=== PATIENT | female | born 1960 | race Caucasian/White ===

== ENCOUNTER → 2017-10-03 | Outpatient (CLI) | payer OTHER | END | disposition home or self-care (01) | LOC: SHCH 15:32 | PROVIDERS: ATTEND Internal Medicine Cardiovascular Disease | DX: I87.2 Venous insufficiency (chronic) (peripheral) (principal) | CPT/HCPCS: 93970 ==

== ENCOUNTER → 2017-11-11 | Outpatient (CLI) | payer OTHER | END | disposition home or self-care (01) | LOC: SHCH 10:02 | PROVIDERS: ATTEND Internal Medicine Cardiovascular Disease | DX: I87.2 Venous insufficiency (chronic) (peripheral) (principal) | CPT/HCPCS: 93970 ==

== ENCOUNTER → 2018-01-16 | Outpatient (CLI) | payer OTHER | END | disposition home or self-care (01) | LOC: SHCH 15:40 | PROVIDERS: ATTEND Internal Medicine Cardiovascular Disease | DX: Z09 Encounter for follow-up examination after completed treatment for conditions other than malignant neoplasm (principal) | CPT/HCPCS: 93971 ==

== ENCOUNTER → 2021-01-19 | Outpatient (CLI) | payer OTHER | END | disposition home or self-care (01) | LOC: OIH 10:27 | PROVIDERS: ATTEND Family Medicine | DX: Z01.818 Encounter for other preprocedural examination (principal) | CPT/HCPCS: 71046 ==

== ENCOUNTER 2021-02-16 08:51 | Observation (INO) | payer OTHER ==
[2021-02-12 10:35] LABS: APPEARANCE,URINE Cloudy (CLEAR); BILIRUBIN,URINE Negative (NEGATIVE); COLOR,URINE Yellow (YELLOW); GLUCOSE, URINE (UA) Negative (NEGATIVE); KETONES,URINE Negative (NEGATIVE); LEUKOCYTE ESTERASE ,URINE Moderate (NEGATIVE); NITRATE,URINE Positive (NEGATIVE); OCCULT BLOOD,URINE Trace (NEGATIVE); PH,URINE 5.5 (5.0-8.0); PROTEIN,URINE Negative (NEGATIVE)
[2021-02-12 10:56] LABS: BACTERIA,URINE Many /HPF (None Seen); SQUAMOUS EPITHELIAL CELL,UR Many /HPF (0-2)
[2021-02-13 11:33] VITALS: BP 130/78
[2021-02-16] VITALS (18 sets, daily range): BP systolic 88–143; BP diastolic 47–85
[~2021-02-16] VITALS: Ht 162.6 cm; Wt 112.3 kg
[~2021-02-16 08:51] MED LIST: ACET1TAB25 PO; ATOR10 PO; DIPH25CA53 PO; LOSA100T58 PO; METO-409 PO; MIRA25TA PO; OMEP40CA21 PO; THEO400T3 PO; VITAMIN D2 PO
[2021-02-16] MEDS ORDERED: LACTATED RINGERS 1000ML 1,000 ML IV ONE (09:34)
[2021-02-16] MEDS: GENTAMICIN SULFATE 240 MG in 0.9%NACL 100ML 100 ML IV SCH ×4 (10:15→16:19)
[2021-02-16] MEDS: CEFAZOLIN SODIUM 1 GM VIAL IVP SCH ×3 (10:23→20:26)
[2021-02-16] MEDS ORDERED: SUCCINYLCHOLINE CHLORIDE 20 MG/ML 10 ML VIAL ONE (10:38)
[2021-02-16] MEDS ORDERED: LIDOCAINE PF 100MG/5ML (2%) SYRINGE 5ML ONE (10:38)
[2021-02-16] MEDS ORDERED: MIDAZOLAM HCL 1 MG/ML 2ML VIAL ONE (10:39)
[2021-02-16] MEDS ORDERED: GLYCOPYRROLATE 1 MG/5 ML SYRINGE ONE (10:39)
[2021-02-16] MEDS ORDERED: DEXAMETHASONE SOD PHOSPHATE 10MG/ML 1ML VIAL ONE (10:39)
[2021-02-16] MEDS ORDERED: FENTANYL CITRATE PF 50 MCG/1 ML 2ML VIAL ONE ×2 (10:39→12:14)
[2021-02-16] MEDS ORDERED: ONDANSETRON 4MG INJ ONE (10:39)
[2021-02-16] MEDS ORDERED: ROCURONIUM 10MG/1ML SYR 10 MG/ML ML ONE ×2 (10:39→12:15)
[2021-02-16] MEDS ORDERED: NEOSTIGMINE 5MG/5ML SYR IV ONE (10:39)
[2021-02-16] MEDS ORDERED: PROPOFOL 10 MG/ML 20ML VIAL IV ONE (10:39)
[2021-02-16] MEDS ORDERED: MEPERIDINE-PF 25 MG/ML SYG ONE ×3 (10:40→14:26)
[2021-02-16] MEDS ORDERED: ROPIVACAINE 0.5% 5MG/ML 30ML IJ ONE (10:43)
[2021-02-16] MEDS ORDERED: KETOROLAC 15MG/ML VIAL (15MG/ML) ONE (11:04)
[2021-02-16] MEDS ORDERED: ACETAMINOPHEN 500 MG TABLET ONE (11:04)
[2021-02-16] MEDS ORDERED: METOCLOPRAMIDE 10 MG/2 ML VIAL ONE (11:05)
[2021-02-16] MEDS ORDERED: CELECOXIB 200 MG CAP ONE (11:05)
[2021-02-16] MEDS ORDERED: SCOPOLAMINE HYDROBROMIDE 1 EACH ADH..PATCH TD ONE (11:13)
[2021-02-16] MEDS ORDERED: CEFAZOLIN SODIUM 1 GM VIAL ONE (11:25)
[2021-02-16] MEDS ORDERED: TRANEXAMIC ACID 1000MG/10ML ONE ×2 (11:26→14:06)
[2021-02-16] MEDS ORDERED: EPHEDRINE SULFATE 50 MG/ML AMPULE ONE (11:48)
[2021-02-16] MEDS ORDERED: FENTANYL CITRATE PF 50 MCG/1 ML 5ML AMP IV ONE (12:31)
[2021-02-16] MEDS ORDERED: ONDANSETRON 4MG INJ IVP PRN (13:45)
[2021-02-16] MEDS ORDERED: POTASSIUM CHLORIDE 10% ELIXIR 20 MEQ/15 ML UDCUP PO PRN (13:45)
[2021-02-16] MEDS ORDERED: FERROUS FUMARATE 324 MG TABLET PO PRN (13:45)
[2021-02-16] MEDS ORDERED: LIDOCAINE HCL-MPF 1% 2ML VIAL IV PRN (13:45)
[2021-02-16] MEDS ORDERED: TRAMADOL HCL 50 MG TABLET PO PRN (13:45)
[2021-02-16] MEDS ORDERED: CALCIUM CARB 500MG PO PRN (13:45)
[2021-02-16] MEDS ORDERED: POTASSIUM CHLORIDE 20MEQ/100ML 100 ML IV PRN (13:45)
[2021-02-16] MEDS ORDERED: KETOROLAC 15MG/ML VIAL (15MG/ML) IV PRN (13:45)
[2021-02-16] MEDS: ACETAMINOPHEN 500 MG TABLET PO SCH ×2 (13:45→20:30)
[2021-02-16] MEDS ORDERED: TEMAZEPAM 15 MG CAPSULE PO PRN (13:45)
[2021-02-16] MEDS ORDERED: DiphenhydrAMINE HCL 50 MG/ML VIAL IVP PRN (13:45)
[2021-02-16] MEDS ORDERED: KCL 20 MEQ ERTAB PO PRN (13:45)
[2021-02-16] MEDS: 0.9%NACL 1000ML 1,000 ML IV SCH ×2 (15:17→23:45)
[2021-02-16] MEDS ORDERED: CEFAZOLIN SODIUM 1 GM VIAL IVP SCH (17:30)
[2021-02-16] MEDS: METOPROLOL SUCCINATE 50 MG TAB.SR.24H PO SCH (20:26)
[2021-02-16] MEDS: PREGABALIN 25 MG CAP PO SCH (20:27)
[2021-02-16] MEDS: THEOPHYLLINE ANHYDROUS 100 MG CAP.ER.24H PO SCH (20:27)
[2021-02-16] MEDS: OXYCODONE HCL 5 MG TAB PO PRN (20:28)
[2021-02-16] MEDS: CELECOXIB 200 MG CAP PO SCH (20:28)
[2021-02-16] MEDS: ASPIRIN 81MG CHEW TAB PO SCH (20:28)
[2021-02-16] MEDS: NITROFURANTOIN MONOHYD/M-CRYST 100 MG CAPSULE PO SCH (20:28)
[2021-02-16] MEDS: DIPHENHYDRAMINE HCL 25 MG CAPSULE PO SCH (21:00)
[2021-02-17 04:05] LABS: HEMATOCRIT 35.9 % (36-48); MEAN CORPUSCULAR HEMOGLOBIN 28.5 pg (27.0-33.0); MEAN CORPUSCULAR HGB CONC 31.5 g/dL (32.0-36.0); MEAN CORPUSCULAR VOLUME 90.4 fL (79-99); RED BLOOD CELL COUNT(AUTO) 3.97 MIL/uL (4.00-5.50); RED CELL DISTRIBUTION WIDTH 13.5 % (11.0-15.5); WHITE BLOOD COUNT (AUTO) 12.9 K/uL (4.8-10.8)
[2021-02-17] MEDS: CEFAZOLIN SODIUM 1 GM VIAL IVP SCH (04:06)
[2021-02-17] MEDS: OXYCODONE HCL 5 MG TAB PO PRN ×4 (04:10→20:19)
[2021-02-17 04:16] LABS: CREATININE 1.7 mg/dL (0.5-1.5); POTASSIUM 4.1 mmol/L (3.5-5.1)
[2021-02-17 04:17] VITALS: BP 120/71
[2021-02-17] MEDS: ACETAMINOPHEN 500 MG TABLET PO SCH ×3 (06:15→20:16)
[2021-02-17] MEDS: PREGABALIN 25 MG CAP PO SCH ×2 (08:11→20:16)
[2021-02-17] MEDS: CELECOXIB 200 MG CAP PO SCH ×2 (08:11→20:16)
[2021-02-17] MEDS: POLYETHYLENE GLYCOL 3350 17 GM POWD.PACK PO SCH (08:11)
[2021-02-17] MEDS: ATORVASTATIN 10 MG TABLET PO SCH (08:12)
[2021-02-17] MEDS: PANTOPRAZOLE 40 MG TAB DR PO SCH (08:13)
[2021-02-17] MEDS: ASPIRIN 81MG CHEW TAB PO SCH ×2 (08:13→20:17)
[2021-02-17] MEDS: NITROFURANTOIN MONOHYD/M-CRYST 100 MG CAPSULE PO SCH ×2 (08:13→20:15)
[2021-02-17] MEDS: MIRABEGRON 25 MG PO SCH (08:13)
[2021-02-17] MEDS: 0.9%NACL 1000ML 1,000 ML IV SCH (08:14)
[2021-02-17 08:29] VITALS: BP 123/62
[2021-02-17] MEDS: LOSARTAN 100 MG TABLET PO SCH (09:00)
[2021-02-17 14:13] VITALS: BP 126/72
[2021-02-17 20:13] VITALS: BP 116/66
[2021-02-17] MEDS: THEOPHYLLINE ANHYDROUS 100 MG CAP.ER.24H PO SCH (20:15)
[2021-02-17] MEDS: METOPROLOL SUCCINATE 50 MG TAB.SR.24H PO SCH (20:23)
[2021-02-17] MEDS: DIPHENHYDRAMINE HCL 25 MG CAPSULE PO SCH (20:41)
[2021-02-18] VITALS: BP 128/72
[2021-02-18] MEDS: OXYCODONE HCL 5 MG TAB PO PRN ×3 (03:34→14:19)
[2021-02-18 03:56] VITALS: BP 122/73
[2021-02-18] MEDS: ACETAMINOPHEN 500 MG TABLET PO SCH ×2 (05:58→14:19)
[2021-02-18 08:11] VITALS: BP 127/73
[2021-02-18] MEDS: CELECOXIB 200 MG CAP PO SCH (08:48)
[2021-02-18] MEDS: POLYETHYLENE GLYCOL 3350 17 GM POWD.PACK PO SCH (08:48)
[2021-02-18] MEDS: ASPIRIN 81MG CHEW TAB PO SCH (08:49)
[2021-02-18] MEDS: PREGABALIN 25 MG CAP PO SCH (08:49)
[2021-02-18] MEDS: PANTOPRAZOLE 40 MG TAB DR PO SCH (08:49)
[2021-02-18] MEDS: NITROFURANTOIN MONOHYD/M-CRYST 100 MG CAPSULE PO SCH (08:49)
[2021-02-18] MEDS: LOSARTAN 100 MG TABLET PO SCH (08:49)
[2021-02-18] MEDS: ATORVASTATIN 10 MG TABLET PO SCH (08:50)
[2021-02-18] MEDS: MIRABEGRON 25 MG PO SCH (08:51)
[2021-02-18 11:15] VITALS: BP 123/78
[2021-02-18 16:17] VITALS: BP 119/64
[2021-02-18] MEDS ORDERED: ASPI-1005 PO (17:18)
[2021-02-18] MEDS ORDERED: HYDR-4060 PO (17:18)
[2021-02-19] MEDS ORDERED: BISACODYL 10 MG SUPP.RECT RC PRN (13:45)
[2021-02-23] MEDS ORDERED: ERGOCALCIFEROL (VITAMIN D2) 50,000 UNIT CAPSULE PO SCH (09:00)
== END 2021-02-18 18:55 ==
LOC: DAH 08:51 → DAHIP 08:52 → EDSTATUS 09:00 → 4BH 15:06
PROVIDERS: ADMIT Orthopaedic Surgery; ATTEND Orthopaedic Surgery
DX: M17.12 Unilateral primary osteoarthritis, left knee (principal); Z20.822 Contact with and (suspected) exposure to COVID-19
CPT/HCPCS: 27447; 36415; 80048; 81001; 85027; 87077; 87088; 87186; 87635; 87641; 88305; 88311; 96361 ×3; 96365; 96375 ×2; 96376; 97039 ×4; 97116 ×4; 97161; 97530 ×3; A4215; A4221; A4222; A4223; A4600; A4649 ×3; A4930; A9272; C1776; G0378 ×53; G8978; G8979; G8980; G8981; G8982; G8983; J0330; J0690 ×4; J1100; J1885 ×2; J2001; J2175 ×3; J2250; J2405; J2704; J2710; J2765; J2795; J3010 ×3; J3490 ×4; J7120 ×2; J1580

== ENCOUNTER → 2022-04-16 | Outpatient (CLI) | payer OTHER ==
[~2022-04-16] MED LIST changes: -ACET1TAB25 PO; +ASPI-1005 PO; +CEPH500B PO; +HYDR-4060 PO
== END | disposition home or self-care (01) ==
LOC: EDSEX 13:46 → RAH 13:46
PROVIDERS: ATTEND Family Medicine
DX: J44.9 Chronic obstructive pulmonary disease, unspecified (principal); E66.9 Obesity, unspecified; E78.5 Hyperlipidemia, unspecified; I10 Essential (primary) hypertension; J84.9 Interstitial pulmonary disease, unspecified
CPT/HCPCS: 93306

== ENCOUNTER 2022-11-06 15:03 | Emergency (ER) | payer OTHER ==
[~2022-11-06] VITALS: Ht 162.6 cm; Wt 136.1 kg
[~2022-11-06 15:03] MED LIST changes: -LOSA100T58 PO; +LOSA100T59 PO
[2022-11-06 15:45] LABS: BASOPHILS % (AUTO) 0.2 % (0.0-5.0); EOSINOPHILS % (AUTO) 0.2 % (0.0-8.0); HEMATOCRIT 37.8 % (36-48); LYMPHOCYTES % (AUTO) 9.1 % (21.0-51.0); MEAN CORPUSCULAR HEMOGLOBIN 29.6 pg (27.0-33.0); MEAN CORPUSCULAR HGB CONC 33.1 g/dL (32.0-36.0); MEAN CORPUSCULAR VOLUME 89.4 fL (79-99); MONOCYTES % (AUTO) 7.8 % (3.0-13.0); NEUTROPHILS % (AUTO) 82.2 % (40.0-77.0); PLATELET COUNT (AUTO) 218 K/uL (130-400); RED BLOOD CELL COUNT(AUTO) 4.23 MIL/uL (4.00-5.50); RED CELL DISTRIBUTION WIDTH 14.3 % (11.0-15.5)
[2022-11-06 15:58] LABS: CARBON DIOXIDE 25 mmol/L (21-32); CHLORIDE 102 mmol/L (101-111); CREATININE 1.2 mg/dL (0.5-1.5); GLOMERULAR FILTR. RATE CALC 48 mL/min (>60); GLUCOSE,RANDOM 129 mg/dL (70-105); POTASSIUM 3.8 mmol/L (3.5-5.1); SODIUM SERUM 136 mmol/L (136-145); UREA NITROGEN, BLOOD 15 mg/dL (7-18)
[2022-11-06] MEDS ORDERED: ONDANSETRON 4MG INJ IVP ONE (16:00)
[2022-11-06] MEDS ORDERED: ACETAMINOPHEN 500 MG TABLET PO ONE (16:00)
[2022-11-06 16:07] LABS: ALANINE AMINOTRANSFERASE 34 U/L (12-78); ALBUMIN 3.4 g/dL (3.5-5.0); ASPARTATE AMINOTRANSFERASE 28 U/L (10-37); CREATINE KINASE, TOTAL 182 U/L (21-232); TOTAL PROTEIN, SERUM 7.4 g/dL (6.0-8.3)
[2022-11-06 16:09] LABS: LIPASE < 50 U/L (114-286)
[2022-11-06] MEDS ORDERED: 0.9%NACL 1000ML 1,000 ML IV ONE (17:00)
[2022-11-06] MEDS ORDERED: IBUPROFEN 600 MG TABLET PO ONE (19:00)
[2022-11-06] MEDS ORDERED: ZOSYN 3.375GM +NS 50ML IVPB SCH (19:30)
[2022-11-06] MEDS ORDERED: IBUPROFEN 200 MG TAB ONE (19:36)
[2022-11-06] MEDS ORDERED: CIPR750T17 PO (19:54)
[2022-11-06] MEDS ORDERED: LOPE2TAB26 PO (19:54)
[2022-11-06] MEDS ORDERED: ONDA4TAB10 PO (19:54)
[2022-11-06 20:38] VITALS: BP 125/59
[2022-11-11] MEDS ORDERED: PANT40TA54 PO (23:08)
[2022-11-11] MEDS ORDERED: MECL-160 PO (23:08)
[2022-11-11] MEDS ORDERED: PREG75CA75 PO (23:08)
[2022-11-11] MEDS ORDERED: ZOLP10TA2 PO (23:08)
[2022-11-11] MEDS ORDERED: SERT-439 PO (23:08)
[2022-11-11] MEDS ORDERED: MIRA50TA PO (23:08)
== END 2022-11-06 20:52 | disposition home or self-care (01) ==
LOC: EDH 15:03
DX: K52.9 Noninfective gastroenteritis and colitis, unspecified (principal); J44.9 Chronic obstructive pulmonary disease, unspecified; E78.00 Pure hypercholesterolemia, unspecified; E66.9 Obesity, unspecified; I10 Essential (primary) hypertension; Z79.1 Long term (current) use of non-steroidal anti-inflammatories (NSAID); Z79.82 Long term (current) use of aspirin; Z79.899 Other long term (current) drug therapy; Z68.43 Body mass index [BMI] 50.0-59.9, adult; Z20.822 Contact with and (suspected) exposure to COVID-19
CPT/HCPCS: 99285; 82550; 84484; 80053; 83690; 85025; 87040 ×2; 87804 ×2; 83605; 36415; 87635; 74176; 96365; 96361; 96375; 93005; 87507; C9803; J7030; J2405; J2543

== ENCOUNTER → 2024-03-26 | Outpatient (CLI) | payer OTHER ==
[~2024-03-26] MED LIST changes: -ASPI-1005 PO; -ATOR10 PO; +ATOR20TA65 PO; -CEPH500B PO; -DIPH25CA53 PO; -HYDR-4060 PO; +LOPE2CAP PO; +MECL-302 PO; +MELO10CA3 PO; -MIRA25TA PO; +MIRA50TA PO; -OMEP40CA21 PO; +ONDA-243 PO; +PANT40GR PO; +PREG50CA64 PO; +TERB250T89 PO; -THEO400T3 PO; -VITAMIN D2 PO
== END | disposition home or self-care (01) ==
LOC: RAH 11:25
PROVIDERS: ATTEND Internal Medicine
DX: R10.2 Pelvic and perineal pain (principal)
CPT/HCPCS: 76856

== ENCOUNTER → 2025-07-23 | Outpatient (CLI) | payer OTHER ==
--- NOTE | 2025-07-24 02:33 | HMCIMG ---
EXAM: MR CERVICAL SPINE WITHOUT IV CONTRAST CLINICAL HISTORY: Cervical radiculopathy. TECHNIQUE: Multiplanar and multisequence MR images of the cervical spine were obtained without IV contrast administration. CONTRAST: NONE COMPARISON: None. FINDINGS: VERTEBRAE: There are multilevel anterior and posterior marginal osteophytes in the cervical vertebrae. There is no evidence of fracture. The visualized posterior fossa structures are unremarkable. VERTEBRAL ALIGNMENT: The cervical lordosis is reduced. Grade I anterolisthesis of C4 over C5 is present without spondylolysis. Normal alignment of the craniocervical junction and cervicothoracic junction. C2/3: Diffuse disc desiccative changes with reduction of the disc height. The bilateral neural foramina are patent. No significant disc herniation. C3/4: Diffuse disc desiccative changes with reduction of the disc height. Central and left foraminal small disc protrusion causing neural foraminal narrowing, without exiting nerve root compression. C4/5: Diffuse disc desiccative changes with reduction of the disc height. There is right foraminal small disc protrusion causing neural foraminal narrowing, without exiting nerve root compression. There is mild right sided facet arthropathy. C5/6: Diffuse disc desiccative changes with reduction of the disc height, most marked at C5-C6. There is mild bilateral facet arthropathy. Central and bilateral foraminal small disc protrusions cause neural foraminal minimal narrowing, without exiting nerve root compression. C6/7: Diffuse disc desiccative changes with reduction of the disc height, most marked at C6-C7. Central, bilateral foraminal, right greater than left disc protrusion causing neural foraminal narrowing with right exiting C7 nerve root compression. CORD: The cervical cord is unremarkable. No myelomalacia. IMPRESSION: 1. Cervical spondylosis with multilevel degeneration. Disc herniation at C6-C7 level causing right exiting C7 nerve root compression. 2. No cervical cord compression/myelomalacia. 3. Grade I anterolisthesis of C4 on C5 without spondylolysis. /[place]
== END | disposition home or self-care (01) ==
LOC: RAH 13:36
PROVIDERS: ATTEND Internal Medicine
DX: M50.123 Cervical disc disorder at C6-C7 level with radiculopathy (principal); M47.22 Other spondylosis with radiculopathy, cervical region; M48.02 Spinal stenosis, cervical region; M43.12 Spondylolisthesis, cervical region
CPT/HCPCS: 72141

== ENCOUNTER 2025-08-08 14:55 | Emergency (ER) | payer OTHER ==
[~2025-08-08] VITALS: Ht 165.1 cm; Wt 135.2 kg
[2025-08-08] MEDS: 0.9%NACL 1000ML 1,000 ML IV ONE (15:17)
[2025-08-08 15:18] LABS: IMMATURE GRANULOCYTE ABSOLUTE 0.06 K/uL (0-1); NUCLEATED RED BLOOD CELLS 0.0 % (0.0-0.19); PLATELET COUNT (AUTO) 254 K/uL (130-400); RED BLOOD CELL COUNT(AUTO) 4.67 MIL/uL (4.00-5.50); RED CELL DISTRIBUTION WIDTH 14.3 % (11.0-15.5); WHITE BLOOD COUNT (AUTO) 9.8 K/uL (4.8-10.8)
--- NOTE | 2025-08-08 15:35 | ERN ---
General Chief Complaint: Nausea,Vomiting,Diarrhea Stated Complaint: NAUSEA AND VOMITING Time Seen by MD: 15:00 Source: patient History of Present Illness Initial Comments Patient is a 65-year-old male coming in complaining of abdominal discomfort nauseousness and vomiting. Per patient she has been having this symptoms for one week. She states he started on medication for obesity and shortly after that started having these symptoms. Allergies: Coded Allergies: No Known Drug Allergies (Unverified Allergy, Unknown, 02/13/21) Home Meds Reported Medications Loperamide HCl (Imodium 2 mg Cap) 2 Mg Capsule, 1 CAP PO 5XDAY for diarrhea 11/01/23 Mirabegron (Myrbetriq) 50 Mg Tab.er.24h, 50 MG PO DAILY, TAB 10/31/23 Meloxicam, Submicronized (Meloxicam) 10 Mg Capsule, 15 MG PO DAILY, CAP 10/31/23 Terbinafine HCl (Terbinafine HCl) 250 Mg Tablet, 250 MG PO DAILY, TAB 10/31/23 Pantoprazole Sodium (Pantoprazole Sodium) 40 Mg Granpkt.dr, 40 MG PO DAILY, PACK 10/31/23 Pregabalin (Pregabalin) 50 Mg Capsule, 50 MG PO BID, CAP 10/31/23 Atorvastatin Calcium (Atorvastatin Calcium) 20 Mg Tablet, 20 MG PO DAILY, TAB 10/31/23 Losartan Potassium (Losartan Potassium) 100 Mg Tablet, 100 MG PO DAILY, TAB 10/31/23 Meclizine HCl (Meclizine HCl) 25 Mg Tablet, 25 MG PO TID, TAB 10/31/23 Ondansetron (Ondansetron Odt) 4 Mg Tab.rapdis, 4 MG PO QID, TAB 10/31/23 Metoprolol Succinate (Metoprolol Succinate) 100 Mg Tab.er.24h, 100 MG PO DAILY, TAB 10/31/23 Past Medical History Past Medical History: CAD, COPD, Diabetes-Type II, GERD, High Cholesterol, Hypertension Medical History Other: Urinary incontinence, obesity Past Surgical History: Unknown Surgical History Other: LEFT KNEE TKA Family History Family History: Negative Social History Social History: Negative ROS Dictation CONSTITUTIONAL: No chills, no fever, no weakness, no diaphoresis, no malaise. HEAD/FACE: No signs of trauma. EENT: No eye pain, no blurred vision, no tearing, no double vision, no ear pain, no ear discharge, no nose pain, no nasal congestion, no throat pain, no throat swelling, no mouth pain. RESPIRATORY: No cough, no orthopnea, no SOB, no stridor, no wheezing. CARDIOVASCULAR: No chest pain, no edema, no palpitations, no syncope. GASTROINTESTINAL/ABDOMINAL: No abdominal pain, no constipation, diarrhea, nausea, vomiting. GENITOURINARY: No abnormal discharge, no dysuria, no frequent urination, no hematuria. No complaints of pain in the genitals. MUSCULOSKELETAL: No back pain, no gout, no joint pain, no joint swelling, no muscle pain, no muscle stiffness, no neck pain. INTEGUMENTARY: No change in color, no change in hair/nails, no dryness, no lesion, no lumps, no rash. NEUROLOGICAL/PSYCH: No anxiety, not depressed, no emotional problem, no headac he, no numbness, no pre-existing deficit, no history of seizures, no tremors, no weakness. HEMATOLOGIC/LYMPHATIC: Not anemic, no history of blood clots, no apparent bleeding, no bruising, glands not swollen. All Systems Negative, Except as Noted. Physical Exam Physical Exam Dictation VITAL SIGNS: Reviewed. GENERAL APPEARANCE: Alert, oriented x3, no acute distress, obese. HEAD AND FACE: Non-traumatic. EYES: PERRL, pink conjunctivas, eyelid no trauma, anterior chamber clear. EARS: Pinnas intact and no signs of trauma or erythema. Ear canals clear and no discharge. TMs no erythema. NOSE: No discharge, no bleeding. OROPHARYNX: Mouth normal, teeth no caries, tongue pink. Pharynx clear, no erythema. Tonsils no exudates, no abscesses noted. Mucous membrane moist. NECK: Supple, non-tender, no thyromegaly, no masses, no JVD, no bruits. BREAST: Deferred. CHEST: No tenderness, no crepitus, no paradoxical movement, no retractions. LUNGS: Clear, well-ventilated, symmetric, no rales, no wheezing, no rhonchi, no stridor, good breath sounds bilaterally. HEART: Regular rate, regular rhythm, no murmur, no gallops. VASCULAR: No peripheral edema. ABDOMEN: Soft, positive bowel sounds, nondistended, no guarding, nontender, no rebound, no masses no hepatomegaly, no splenomegaly, no Fraire's sign, no hernias. RECTAL: Deferred. GENITAL: Deferred. NEUROLOGICAL: Normal speech, gross motor function intact, gross sensory function intact. MUSCULOSKELETAL: Neck nontender, full range of motion, back nontender, full range of motion. EXTREMITIES: Nontender, full range of motion. SKIN: Color pink, dry, no turgor, no rash, no lacerations, no abrasions, no contusions. LYMPHATICS: Deferred. Results Laboratory and Microbiology Lab and Micro Result Laboratory Tests Test 08/08/25 15:10 08/08/25 15:45 White Blood Count 9.8 K/uL (4.8-10.8) Red Blood Count 4.67 MIL/uL (4.00-5.50) Hemoglobin 13.0 g/dL (12.0-16.0) Hematocrit 41.8 % (36-48) Mean Corpuscular Volume 89.5 fL (79-99) Mean Corpuscular Hemoglobin 27.8 pg (27.0-33.0) Mean Corpuscular Hemoglobin Concent 31.1 g/dL (32.0-36.0) L Red Cell Distribution Width 14.3 % (11.0-15.5) Platelet Count 254 K/uL (130-400) Mean Platelet Volume 10.1 fL (7.5-10.5) Immature Granulocyte % (Auto) 0.6 % (0-1) Neutrophils (%) (Auto) 74.3 % (40.0-77.0) Lymphocytes (%) (Auto) 17.5 % (21.0-51.0) L Monocytes (%) (Auto) 6.4 % (3.0-13.0) Eosinophils (%) (Auto) 0.9 % (0.0-8.0) Basophils (%) (Auto) 0.3 % (0.0-5.0) Neutrophils # (Auto) 7.3 K/uL (1.8-7.7) Lymphocytes # (Auto) 1.7 K/uL (1.0-4.8) Monocytes # (Auto) 0.6 K/uL (0.1-1.0) Eosinophils # (Auto) 0.09 K/uL (0.00-0.70) Basophils # (Auto) 0.03 K/uL (0.00-0.20) Absolute Immature Granulocyte (auto 0.06 K/uL (0-1) Nucleated Red Blood Cells 0.0 % (0.0-0.19) Sodium Level 139 mmol/L (136-145) Potassium Level 3.7 mmol/L (3.5-5.1) Chloride Level 103 mmol/L (101-111) Carbon Dioxide Level 25 mmol/L (21-32) Blood Urea Nitrogen 13 mg/dL (7-18) Creatinine 1.0 mg/dL (0.5-1.0) Glomerular Filtration Rate Calc 63 mL/min (>90) Random Glucose 133 mg/dL (70-105) H Total Calcium 9.3 mg/dL (8.5-10.1) Total Bilirubin 0.7 mg/dL (0.2-1.0) Aspartate Amino Transf (AST/SGOT) 23 U/L (10-37) Alanine Aminotransferase (ALT/SGPT) 40 U/L (12-78) Alkaline Phosphatase 93 U/L (50-136) Total Protein 8.3 g/dL (6.0-8.3) Albumin 3.9 g/dL (3.5-5.0) Lipase 18 U/L (16-77) Urine Color LIGHT-YELLOW (YELLOW) Urine Appearance CLEAR (CLEAR) Urine pH 7.5 (5.0-8.0) Urine Specific [place] 1.014 (1.001-1.031) Urine Protein 10 mg/dL (NEGATIVE) H Urine Glucose (UA) NEGATIVE mg/dL (NEGATIVE) Urine Ketones 20 mg/dL (NEGATIVE) H Urine Occult Blood +- (TRACE) (NEGATIVE) H Urine Nitrate 2+ (NEGATIVE) H Urine Bilirubin NEGATIVE mg/dL (NEGATIVE) Urine Urobilinogen 0.2 mg/dL (0.2-1.0) Urine Leukocyte Esterase NEGATIVE Keith/uL Urine RBC 11-25 /HPF (0-1) H Urine WBC 2-5 /HPF (0-1) H Urine Squamous Epithelial Cells RARE /HPF (0-2) Urine Bacteria 1 /HPF (None Seen) Labs Reviewed?: Yes MDM MDM: Differential diagnosis: Gastritis, gastroenteritis, medication side effects Rationale: Tests considered and ordered secondary to shared decision making include: Previous outside records reviewed: Old ER visits. Risk of complication and/or morbidity or mortality of patient management: None Medications-Per medication reconciliation Need for hospitalization: Patient does not meet criteria for hospitalization. Need for emergency major/minor surgery: No Patient is a 65-year-old female coming in complaining of abdominal discomfort diarrhea and vomiting. Per patient he was she was taking a medication to help her lose weight started having these symptoms shortly after that. Symptoms has been ongoing for one week. Laboratory workup within normal limits patient was hydrated with IV fluids received a GI cocktail. Laboratory workup did disclose a urinary tract infection patient will be discharged with oral antibiotics. I did advised her appropriate follow up with the PCP I did also advise her diet modification free of lactose products and fatty foods. ED Course Orders Procedure Category Date Status Time Cbc With Differential LAB 08/08/25 Complete 15:00 Comprehensive LAB 08/08/25 Complete Metabolic Panel 15:00 Urinalysis Profile LAB 08/08/25 Complete 15:00 0.9%Nacl 1000ml (Ns PHA 08/08/25 Complete 1000ml) 15:00 Ondansetron 4mg Inj PHA 08/08/25 Complete (Zofran 4mg Inj) 15:00 Pantoprazole 40mg Inj PHA 08/08/25 Complete (Protonix 40mg Inj 15:00 Lipase LAB 08/08/25 Complete 15:00 Culture Urine LUISA 08/08/25 In Process 16:04 Gi Cocktail(Viscous PHA 08/08/25 Verified [place] 2%) 16:30 Gi Cocktail (Maalox PHA 08/08/25 Verified 30ml) 16:30 Current Medications Medications (Trade) Dose Ordered Sig/Donell Route PRN Reason Start Time Stop Time Status Last Admin Dose Admin Ondansetron HCl (zoFRAN 4MG INJ) 4 mg ONCE ONCE IVP 08/08/25 15:00 08/08/25 15:03 DC 08/08/25 15:17 Pantoprazole Sodium (PROTonix 40MG INJ) 40 mg ONCE ONCE IVP 08/08/25 15:00 08/08/25 15:03 DC 08/08/25 15:17 Sodium Chloride 1,000 ml @ 0 mls/hr ONCE ONCE IV 08/08/25 15:00 08/08/25 15:03 DC 08/08/25 15:17 Vital Signs Date Time Temp Pulse Resp B/P (MAP) Pulse Ox O2 Delivery O2 Flow Rate FiO2 08/08/25 15:07 98.2 85 20 154/80 99 Room Air* 0 21 08/08/25 15:00 98.2 87 20 168/84 99 Room Air DX & DISP Disposition: Discharge Departure Impression: Primary Impression: Gastroenteritis Additional Impression: UTI (urinary tract infection) Condition: Stable Scripts Lactobacillus Acidophilus (Acidophilus Probiotic) 500 Million Cell Capsule 1 CAP PO DAILY for 30 Days, #30 CAP 0 Refills Prov: SREEDHAR HANDY MD 08/08/25 Pantoprazole Sodium (Protonix) 40 Mg Ectab 1 TAB PO DAILY for 30 Days, #30 TAB 0 Refills Prov: SREEDHAR HANDY MD 08/08/25 Cephalexin Monohydrate (Keflex) 500 Mg Cap 1 CAP PO BID for 10 Days, #20 CAP 0 Refills Prov: SREEDHAR HANDY MD 08/08/25 Additional Instructions: FOLLOW-UP WITH PRIMARY CARE PROVIDER IN 1 TO 2 DAYS. TAKE MEDICATIONS DIRECTED HERE IN THE EMERGENCY ROOM. OKAY TO CONTINUE HOME MEDICATIONS UNLESS OTHERWISE DISCUSSED DURING YOUR VISIT IN THE EMERGENCY ROOM TODAY. RETURN TO YOUR NEAREST EMERGENCY ROOM IF SYMPTOMS WORSEN OR IF THERE IS NO IMPROVEMENT. CALL 911 IF YOU NEED IMMEDIATE ASSISTANCE. TAKE TYLENOL [id number] NEEDED AND IF NO CONTRAINDICATIONS ARE PRESENT. INCREASE ORAL HYDRATION. A WOU ND CULTURE OR URINE CULTURE WAS ORDERED HERE IN THE EMERGENCY ROOM DEPARTMENT PLEASE FOLLOW-UP WITH PRIMARY CARE PROVIDER AND ADVISE THEM TO GET REPORTS FROM OUR FACILITY. IF YOU HAD ANY ROSALINE WRAP/SPLINTS THAT WERE APPLIED HERE, PLEASE DO NOT REMOVE THEM UNTIL YOU SEE YOUR PRIMARY CARE OR SPECIALTY. Referrals: Referrals: KVNG CHESTER MD (PCP) Time of Disposition: 16:21 SREEDHAR HANDY MD Aug 08, 2025 15:35
[2025-08-08 15:52] LABS: CREATININE 1.0 mg/dL (0.5-1.0); GLOMERULAR FILTR. RATE CALC 63.0 mL/min (>90); GLUCOSE,RANDOM 133.0 mg/dL (70-105); SODIUM SERUM 139.0 mmol/L (136-145); UREA NITROGEN, BLOOD 13.0 mg/dL (7-18)
[2025-08-08 15:57] LABS: ASPARTATE AMINOTRANSFERASE 23.0 U/L (10-37); TOTAL PROTEIN, SERUM 8.3 g/dL (6.0-8.3)
[2025-08-08 16:03] LABS: APPEARANCE,URINE CLEAR (CLEAR); GLUCOSE, URINE (UA) NEGATIVE (NEGATIVE); LEUKOCYTE ESTERASE ,URINE NEGATIVE Leu/uL (NEGATIVE); NITRATE,URINE 2+ (NEGATIVE); OCCULT BLOOD,URINE +- (TRACE) (NEGATIVE)
[2025-08-08 16:04] LABS: ADD UA MICROSCOPIC YES
[2025-08-08 16:05] LABS: SQUAMOUS EPITHELIAL CELL,UR RARE /HPF (0-2)
[2025-08-08] MEDS: LIDOCAINE HCL 2% VISCOUS 15 ML UDCUP PO ONE (16:30)
[2025-08-08] MEDS: MAG/ALUM/SIMETH 30 ML UDCUP PO ONE (16:30)
[2025-08-08 16:54] VITALS: BP 137/74; PULSE 82; RESP 20; TEMP 98.2; O2SAT 99
== END 2025-08-08 16:55 | disposition home or self-care (01) ==
LOC: EDH 14:55
DX: K52.9 Noninfective gastroenteritis and colitis, unspecified (principal); N39.0 Urinary tract infection, site not specified; R11.2 Nausea with vomiting, unspecified; E11.9 Type 2 diabetes mellitus without complications; I25.10 Atherosclerotic heart disease of native coronary artery without angina pectoris; I10 Essential (primary) hypertension; E78.00 Pure hypercholesterolemia, unspecified; J44.9 Chronic obstructive pulmonary disease, unspecified; E66.9 Obesity, unspecified; Z79.1 Long term (current) use of non-steroidal anti-inflammatories (NSAID); Z79.899 Other long term (current) drug therapy; Z96.652 Presence of left artificial knee joint; Z68.42 Body mass index [BMI] 45.0-49.9, adult
CPT/HCPCS: 99284; 96374; 96375; 80053; 83690; 85025; 87086 ×2; 87186; 81001; 36415; J7030; J2405; J2470

== ENCOUNTER → 2025-08-21 | Outpatient (CLI) | payer OTHER ==
[~2025-08-21] MED LIST changes: +CEPH500B PO; +LACT-356 PO; +PANT40TA55 PO
--- NOTE | 2025-08-21 08:53 | HMCIMG ---
DOUBLE CONTRAST UPPER GI SERIES: CLINICAL HISTORY: Diaphragmatic hernia without obstruction or gangrene Finding: The study was performed using provocative maneuvers After swallowing effervescent crystal and thick barium, there is no definite intrinsic or extrinsic lesion seen in the esophagus. There is grade 2 esophageal reflux with small hiatal hernia. The stomach is normal in size, shape, and configuration.The rugal folds appear to be normal. The duodenal bulb, duodenal sweep, and upper jejunum appear to be normal. Patient has right humerus arthroplasty with orthopedic plates and screws seen at the edges study. Fluoroscopy time: 0.8 minute. IMPRESSION: Grade 2 esophageal reflux with small hiatal hernia Otherwise NORMAL DOUBLE CONTRAST UPPER GI SERIES.
== END | disposition home or self-care (01) ==
LOC: RAH 07:39
PROVIDERS: ATTEND Surgery
DX: K21.9 Gastro-esophageal reflux disease without esophagitis (principal); K44.9 Diaphragmatic hernia without obstruction or gangrene; Z98.84 Bariatric surgery status
CPT/HCPCS: 74240